=== PATIENT | male | born 1940 | race Caucasian/White ===

== ENCOUNTER → 2019-04-01 | Outpatient (CLI) | payer OTHER ==
[~2019-04-01] MED LIST: CALCITRIOL0.25 MCG PO; CALCIUM PO; CELEXA 20 MG TA20 MG PO; CELLCEPT500 MG PO; CLONIDINE PO; COUMADIN PO; DIOVAN160 MG PO; DIOVAN320 MG PO; DOMPERIDONE PO; FISH OIL 1,0001 EAC5 PO; FOLIC ACID PO; HYDROCHLOROTH12.5 MG PO; IRON PO; LIPITOR40 MG PO; NEURO-K50 MG PO; NEXIUM20 M1 PO; NORCO 5-325 TA1 EACH PO; OCUVITE TABLET1 EAC1 PO; PREDNISONE 2.52.5 MG PO; PROCRIT; PROTONIX 20 MG20 M1 PO; RESTORIL15 MG PO; TRANDATE 200 M200 M1 PO; VITAMIN B-1100 MG PO; XANAX 0.5 MG0.5 M1 PO; ZPAK PO
== END ==
LOC: M.RAD 10:53
DX: L97.521 Non-pressure chronic ulcer of other part of left foot limited to breakdown of skin (principal); M19.072 Primary osteoarthritis, left ankle and foot; L03.032 Cellulitis of left toe; Z88.8 Allergy status to other drugs, medicaments and biological substances; Z88.0 Allergy status to penicillin

== ENCOUNTER → 2020-01-14 | Outpatient (CLI) | payer OTHER | LOC: M.LAB 15:43 | PROVIDERS: ATTEND Internal Medicine Gastroenterology | DX: Z01.812 Encounter for preprocedural laboratory examination (principal); Z11.59 Encounter for screening for other viral diseases; R19.4 Change in bowel habit; Z86.010 Personal history of colon polyps ==

== ENCOUNTER → 2020-08-11 | Outpatient (CLI) | payer OTHER | LOC: M.RAD 15:10 | PROVIDERS: ATTEND Internal Medicine | DX: M17.0 Bilateral primary osteoarthritis of knee (principal); M25.78 Osteophyte, vertebrae; M43.8X6 Other specified deforming dorsopathies, lumbar region; M17.11 Unilateral primary osteoarthritis, right knee; M47.816 Spondylosis without myelopathy or radiculopathy, lumbar region ==